=== PATIENT | female | born 1995 | race Caucasian/White ===

== ENCOUNTER 2017-02-16 10:02 | Outpatient (CLI) | payer MEDICAID ==
[~2017-02-16] VITALS: Ht 163.3 cm; Wt 65.0 kg
--- NOTE | ~2017-02-16 | HP ---
PATIENT'S NAME: ADELINA WARREN [facility] AGE: 21 Y [address] ROOM: [place], [place] [address] LOCATION: [facility] ADMIT DATE: 02/16/2017 History & Physical DISCHARGE DATE: 02/16/2017 FAMILY PHYSICIAN: Natan Fountain MD ATTENDING PHYSICIAN: Natan Fountain DATE OF SERVICE: 02/16/2017 HISTORY OF PRESENT ILLNESS: The patient is a 21-year-old G3, P2-0-0-2, who presented to the hospital today without any registered care with the complaints of vaginal bleeding. The patient states that she had intercourse yesterday and woke up this a.m. with a large amount of bright red blood in her underwear. Upon arrival here, patient was noted to have a small amount of bright red spotting on her underwear but otherwise no major bleeding. She denies any cramping today. Of note as stated above, the patient has not established care at this time but does have an appointment scheduled with Dr. Erlinda Zuñiga on February 22 for new OB visit. She does report an early ultrasound at [facility] approximately seven to eight weeks consistent with her LMP giving her a due date of June 30 which would make her 20 weeks and six days today. The patient had also been seen at the [facility] Emergency room twice during this , one at approximately 14 weeks and one again last week. The patient states that during her visit at 14 weeks, she was complaining of vaginal bleeding and had an ultrasound performed at that time, which she reports as normal and during her visit last week was complaining of vaginal discharge and states that she was diagnosed with a pelvic infection of gonorrhea and chlamydia and was treated. She has also been taking antibiotics for a supposed MRSA abscess in her right upper arm which she says has improved. She denies any cramping or vaginal discharge today. She reports positive movement. PAST MEDICAL HISTORY: Noncontributory. PAST SURGICAL HISTORY: Noncontributory. PAST SQUEEGEER AND FORMER HISTORY: As noted above the patient is a -0-0-2, who reports that her first was complicated by gestational diabetes. Otherwise denies complication and has had two spontaneous vaginal deliveries at term. As stated above, this has been complicated by two episodes of vaginal bleeding. The patient is blood type O positive. Outside ultrasound reports are not available at this time to establish dating but she should be 20 weeks and six days based on her stated EDC. PATIENT'S NAME: ADELINA WARREN [facility] AGE: 21 Y [address] ROOM: [place], [place] [address] LOCATION: [facility] ADMIT DATE: 02/16/2017 History & Physical DISCHARGE DATE: 02/16/2017 FAMILY PHYSICIAN: Natan Fountain MD ATTENDING PHYSICIAN: Natan Fountain ALLERGIES: THE PATIENT REPORTS AN ALLERGY TO AMOXICILLIN. MEDICATIONS: Denies any medication use. REVIEW OF SYSTEMS: Is negative except as noted above. physical examination. PHYSICAL EXAMINATION: VITAL SIGNS: Reviewed and are stable. heart tones are 150. She is noted to have some slight irritability on [place]. GENERAL: She appears awake, alert, and oriented, does not appear to be in acute distress. HEART: Regular rate and rhythm. LUNGS: Clear to auscultation bilaterally. ABDOMEN: Soft, gravid, and consistent with dates. EXTREMITIES: No cyanosis, or edema. On abdominal ultrasound, she has not had a fetus in the transverse presentation with positive movement and cardiac activity with heart tones in the 150s. Fetus appears to be female. Estimated gestational age appears to be consistent with her stated EDC with measurements around 21 weeks. Amniotic fluid appears normal. The placenta does not appear to be low- lying or overlying the cervical os. On speculum exam, patient is noted to have some dark red blood present around the cervix, but no active bright red bleeding and no visible cervical dilation. LABORATORY DATA: Patient's CBC and blood type are reviewed. ASSESSMENT AND PLAN: This is a 21-year-old G3, P2-0-0-2, at 28 weeks six days with an episode of vaginal bleeding. 1. IUP status reassuring. 2. Vaginal bleeding. The patient is blood type O positive and as such, does not require any RhoGAM. Discussed with the patient today that I do not see any evidence of low-lying placenta or placenta previa. It is not uncommon for the patient to have vaginal bleeding after intercourse in . Discussed that her cervix may also be more friable due to her recently diagnosed pelvic infection. I would recommend that she have a test of cure when she is approximately at least three weeks from her date of treatment. Also, discussed with the patient that she needs to follow up with our office as scheduled on her appointment on February 22 with . PATIENT'S NAME: ADELINA WARREN [facility] AGE: 21 Y [address] ROOM: [place], [place] [address] LOCATION: [facility] ADMIT DATE: 02/16/2017 History & Physical DISCHARGE DATE: 02/16/2017 FAMILY PHYSICIAN: Natan Fountain MD ATTENDING PHYSICIAN: Natan Fountain, at which time, she will need a detailed anatomy exam. The patient was counseled to return to the hospital with any significant amount of bright red bleeding, significant cramping that does not resolve with fluids and Tylenol. The patient was also counseled on normal movement at this point in and she denied any other questions. NATAN FOUNTAIN MD GT/modl /[id number] D: [id number] T: [id number] HISTORY & PHYSICAL
[~2017-02-16 10:02] MED LIST: DERMOPLAST SPRA56 GM TOP; FEOSOL325 MG PO; MOTRIN800 MG PO; PERCOCET 5-3251 EACH PO; PRENATAL 1+1)(P1 TAB PO
[2017-02-16 11:00] LABS: BASOPHIL % 0.3 %; EOSINOPHIL # 0.1 K/uL (0.0-0.5); EOSINOPHIL % 0.5 %; HEMATOCRIT 34.9 % (33.0-46.0); HEMOGLOBIN 11.8 g/dL (11.0-15.0); IMMATURE GRANULOCYTE # 0.1 K/uL (0.0-0.3); IMMATURE GRANULOCYTE % 0.6 %; LYMPHOCYTE # 1.7 K/uL (0.8-4.0); LYMPHOCYTE % 15.7 %; MCH 29.6 pg (27.0-34.0); MCHC 33.8 gm/dL (32.0-36.5); MCV 87.5 fl (83.0-98.0); MONOCYTE # 0.4 K/uL (0.0-1.0); MPV 10.8 fl (9.4-12.4); NEUTROPHIL # (ANC) 8.7 K/uL (1.8-7.8); NEUTROPHIL % 78.9 %; NRBC % 0 /100WBC (0-0.00); PLATELET COUNT 173 K/uL (150-450); RDW-CV 13.2 % (11.9-14.6)
[2017-02-16 11:01] LABS: RBC 3.99 M/uL (3.50-5.00)
== END 2017-02-16 12:15 | disposition disaster alternative care site (69) ==
LOC: GOBM 10:02 → GOBS 10:02 → GOBM 12:15
PROVIDERS: Obstetrics & Gynecology
DX: O46.93 Antepartum hemorrhage, unspecified, third trimester (principal); Z3A.28 28 weeks gestation of pregnancy
CPT/HCPCS: G0463

== ENCOUNTER 2017-06-03 17:42 | Outpatient (CLI) | payer MEDICAID ==
[~2017-06-03] VITALS: Ht 163.3 cm; Wt 75.5 kg
[2017-06-03] MEDS ORDERED: KEFLEX500 MG PO (18:47)
[2017-06-03 19:58] LABS: BILIRUBIN URINE NEGATIVE (NEGATIVE); BLOOD URINE NEGATIVE /UL (NEGATIVE); COLOR URINE YELLOW (YELLOW); GLUCOSE URINE NEGATIVE (NEGATIVE); KETONE URINE NEGATIVE (NEGATIVE); LEUKOCYTES URINE 100 /UL (NEGATIVE); NITRITE URINE NEGATIVE (NEGATIVE); PROTEIN URINE 15 mg/dL (NEGATIVE); TURBIDITY URINE 3+ (CLEAR); UROBILINOGEN URINE NORMAL (NORMAL)
[2017-06-03 20:09] LABS: AMORPHOUS URINE 3+ (NEGATIVE); BACTERIA URINE RARE (NEGATIVE); RBC URINE 0-2 #/HPF (NEGATIVE)
[2017-06-03 20:10] LABS: MUCUS URINE 1+ (NEGATIVE)
[2017-06-03 20:43] LABS: BASOPHIL # 0.1 K/uL (0.0-0.2); BASOPHIL % 0.4 %; EOSINOPHIL # 0.3 K/uL (0.0-0.5); EOSINOPHIL % 2.2 %; HEMATOCRIT 33.3 % (33.0-46.0); HEMOGLOBIN 11.1 g/dL (11.0-15.0); IMMATURE GRANULOCYTE # 0.2 K/uL (0.0-0.3); IMMATURE GRANULOCYTE % 1.2 %; LYMPHOCYTE # 2.2 K/uL (0.8-4.0); LYMPHOCYTE % 16.2 %; MCHC 33.3 gm/dL (32.0-36.5); MCV 84.1 fl (83.0-98.0); MONOCYTE # 0.9 K/uL (0.0-1.0); MONOCYTE % 6.2 %; MPV 11.3 fl (9.4-12.4); NEUTROPHIL % 73.8 %; NRBC % 0 /100WBC (0-0.00); PLATELET COUNT 154 K/uL (150-450); RBC 3.96 M/uL (3.50-5.00); RDW-CV 14.2 % (11.9-14.6); WBC 13.6 K/uL (4.0-11.0)
== END 2017-06-04 01:00 | disposition disaster alternative care site (69) ==
LOC: GOBM 17:42 → GOBS 17:42 → GOBM 06-04 01:00
PROVIDERS: Obstetrics & Gynecology
DX: O99.89 Other specified diseases and conditions complicating pregnancy, childbirth and the puerperium (principal); M54.5 Low back pain; Z3A.36 36 weeks gestation of pregnancy; Z88.0 Allergy status to penicillin; Z91.040 Latex allergy status
CPT/HCPCS: G0463; J2001; J3370; J7050; J7120

== ENCOUNTER 2017-06-15 09:42 | Inpatient (IN) | payer MEDICAID ==
[~2017-06-15] VITALS: Ht 162.6 cm; Wt 76.4 kg
--- NOTE | ~2017-06-15 | OR ---
PATIENT'S NAME: ADELINA WARREN [facility] AGE: 22 Y [address] ROOM: [place] [address] LOCATION: [facility] ADMIT DATE: 06/15/2017 OR/Procedure Report DISCHARGE DATE: FAMILY PHYSICIAN: PHYSICIAN, NO ATTENDING PHYSICIAN: MICHAEL MCCURDY SURGEON: Michael Mccurdy MD SOLE BUFFER: DATE OF PROCEDURE: 06/15/2017 PREOPERATIVE DIAGNOSES: 1. Intrauterine at 38 weeks 0 days. 2. Active labor. 3. History of substance abuse. POSTOPERATIVE DIAGNOSES: 1. Intrauterine at 38 weeks 0 days. 2. Active labor. 3. History of substance abuse. PROCEDURE PERFORMED: Spontaneous vaginal delivery over intact perineum. ANESTHESIA: None. FINDINGS: Viable male infant with scores of 8 and 9, weight of 7 pounds 10 ounces. Placenta intact with three-vessel cord. No cervical, vaginal, or perineal laceration. ESTIMATED BLOOD LOSS: 250 mL. COMPLICATIONS: None. INDICATIONS: The patient is a 22-year-old, G3, P2-0-0-2 with intrauterine at 38 weeks 0 days, who presented to Labor and Delivery at 78 cm with a bulging bag. She did not desire an epidural. She had artificial rupture of membranes of clear fluid and progressed spontaneously to complete. DESCRIPTION OF PROCEDURE: The patient was prepped and draped in the usual fashion. She was placed in dorsal lithotomy position. head was delivered with maternal expulsive efforts over an intact perineum in the VIBHA position. The anterior shoulder delivered followed by the remainder of the fetus. The was placed on the mother's abdomen. The cord was clamped. Cord blood was obtained. The placenta then delivered spontaneously intact. No lacerations were noted. Instrument, sponge, and needle counts were correct at the conclusion of the case. PATIENT'S NAME: ADELINA WARREN [facility] AGE: 22 Y [address] ROOM: [place] [address] LOCATION: [facility] ADMIT DATE: 06/15/2017 OR/Procedure Report DISCHARGE DATE: FAMILY PHYSICIAN: , NO ATTENDING PHYSICIAN: MICHAEL MCCURDY DISPOSITION: Mom stable. Baby in room with mom. MD Jewel KENDRICK /[id number] d: 06/15/17 1700 t: 06/21/17 1819, OPERATIVE SUMMARY
[~2017-06-15 09:42] MED LIST changes: +KEFLEX500 MG PO
[2017-06-15 10:15] LABS: BASOPHIL # 0.1 K/uL (0.0-0.2); BASOPHIL % 0.3 %; EOSINOPHIL # 0.2 K/uL (0.0-0.5); EOSINOPHIL % 1.3 %; HEMATOCRIT 34.6 % (33.0-46.0); HEMOGLOBIN 11.5 g/dL (11.0-15.0); IMMATURE GRANULOCYTE # 0.2 K/uL (0.0-0.3); IMMATURE GRANULOCYTE % 0.8 %; LYMPHOCYTE # 1.6 K/uL (0.8-4.0); LYMPHOCYTE % 8.7 %; MCH 27.6 pg (27.0-34.0); MCHC 33.2 gm/dL (32.0-36.5); MONOCYTE # 0.7 K/uL (0.0-1.0); MONOCYTE % 3.9 %; MPV 10.6 fl (9.4-12.4); NEUTROPHIL # (ANC) 15.1 K/uL (1.8-7.8); NRBC % 0 /100WBC (0-0.00); PLATELET COUNT 161 K/uL (150-450); RBC 4.17 M/uL (3.50-5.00); RDW-CV 14.5 % (11.9-14.6)
[2017-06-15 10:20] LABS: WBC 17.8 K/uL (4.0-11.0)
--- NOTE | 2017-06-15 15:38 | NUR ---
Phone call at 0835 today from Cesar Torres with [facility] questioning if patient was here and had delivered. I check records and informed Cesar that patient was here for observation last night for about 4 hours but she discharged to home. Cesar informs me that patient has lost custody of her other 2 children due to drug use. 1010 I am at [facility] and receive a call from admission stating patient is in active labor and on her way to the floor. 1045 baby boy delivered. I notified Cesar Torres at [facility] of of baby boy. 1320 I placed a phone call to Verna Zendejas with [facility] the chemic mangler for Che and left her a message asking her or Cesar to call me and let me know the plan for baby as he will likely be ready for discharge by Sunday. 1420 I arrived on the floor and met with patient and her boyfriend Manfred. Baby Adalberto is still being monitored in the NICU. Che and Manfred state they just revieved keys to their new apartment and Manfred is planning on moving them in this weekend. They have all the necessary items for baby at home including crib, carseat, formula, diapers and wipes. She has an appointment with [facility] on 07/04. I provided her with a list of community resources.
[2017-06-15] MEDS ORDERED: TUMS200 MG PO (18:36)
[2017-06-16 06:06] LABS: BASOPHIL # 0.1 K/uL (0.0-0.2); BASOPHIL % 0.6 %; EOSINOPHIL # 0.3 K/uL (0.0-0.5); EOSINOPHIL % 2.7 %; HEMATOCRIT 31.6 % (33.0-46.0); HEMOGLOBIN 10.5 g/dL (11.0-15.0); IMMATURE GRANULOCYTE # 0.2 K/uL (0.0-0.3); IMMATURE GRANULOCYTE % 1.4 %; LYMPHOCYTE # 2.3 K/uL (0.8-4.0); LYMPHOCYTE % 18.3 %; MCH 27.8 pg (27.0-34.0); MCHC 33.2 gm/dL (32.0-36.5); MCV 83.6 fl (83.0-98.0); MONOCYTE # 0.8 K/uL (0.0-1.0); MONOCYTE % 6.6 %; MPV 11.4 fl (9.4-12.4); NEUTROPHIL # (ANC) 8.7 K/uL (1.8-7.8); NEUTROPHIL % 70.4 %; NRBC % 0 /100WBC (0-0.00); PLATELET COUNT 153 K/uL (150-450); RBC 3.78 M/uL (3.50-5.00); RDW-CV 14.3 % (11.9-14.6); WBC 12.4 K/uL (4.0-11.0)
[2017-06-17] MEDS ORDERED: MOTRIN800 MG PO (10:29)
[2017-06-17] MEDS ORDERED: PERCOCET 5-3251 EACH PO (10:29)
== END 2017-06-17 15:10 | disposition disaster alternative care site (69) | DRG 775 ==
LOC: GOBS 09:42
PROVIDERS: Obstetrics & Gynecology; ADMIT Obstetrics & Gynecology
PROC: 10E0XZZ Delivery of Products of Conception, External Approach (ICD-10-PCS; principal; 2017-06-15)
DX: O80 Encounter for full-term uncomplicated delivery (principal); Z37.0 Single live birth; Z3A.38 38 weeks gestation of pregnancy
CPT/HCPCS: J2001; J2590; J7120